=== PATIENT | female | born 1935 | race Caucasian/White ===

== ENCOUNTER 2019-07-11 07:48 | Inpatient (IN) | payer MEDICARE, BC ==
[~2019-07-11 07:48] MED LIST: Isosulfan Blue 5 ML SDV ONE
[2019-07-11] MEDS ORDERED: Glycopyrrolate 0.2 MG/ML 5 ML MDV ONE (08:22)
[2019-07-11] MEDS ORDERED: Ondansetron 4 MG/2 ML SDV ONE (08:22)
[2019-07-11] MEDS ORDERED: Dexamethasone 4 MG/ML SDV ONE (08:22)
[2019-07-11] MEDS ORDERED: Neostigmine Methylsulfate 1 MG/ML 5 ML Syringe ONE (08:22)
[2019-07-11] MEDS ORDERED: Propofol 200 MG/20 ML SDV ONE (08:22)
[2019-07-11] MEDS: Dextrose 5%-Lactated Ringers 1,000 ML IV SCH ×3 (08:22→14:13)
[2019-07-11] MEDS ORDERED: Rocuronium 50 MG/5 ML Vial ONE (08:22)
[2019-07-11] MEDS ORDERED: fentaNYL 250 MCG/5 ML SDV ONE ×2 (08:24→11:23)
[2019-07-11] MEDS ORDERED: Lidocaine 1% with EPINEPHrine 1:100,000 50 ML MDV ONE (08:47)
[2019-07-11] MEDS ORDERED: Bupivacaine 0.5% 50 ML MDV ONE (08:47)
[2019-07-11] MEDS ORDERED: Acetaminophen 500 MG Tab PO ONE (09:00)
[2019-07-11] MEDS ORDERED: ceFAZolin 2 GM in Sodium Chloride 0.9% 50 ML IV ONE (09:45)
[2019-07-11] MEDS: Mupirocin Oint 22 GM Tube TOP SCH ×2 (11:38→14:13)
[2019-07-11] MEDS ORDERED: Mupirocin Oint 22 GM Tube TOP ONE (12:00)
[2019-07-11] MEDS ORDERED: HYDROmorphone 0.5 MG/0.5 ML Syringe IVPUSH PRN (14:35)
[2019-07-11] MEDS ORDERED: HYDROmorphone 1 MG/ML Syringe IV PRN (14:35)
[2019-07-11] MEDS ORDERED: Ondansetron 4 MG/2 ML SDV IVPUSH PRN (14:35)
[2019-07-11] MEDS: Acetaminophen 325 MG Tab PO SCH ×2 (17:00→21:50)
[2019-07-11] MEDS: ceFAZolin 2 GM in Sodium Chloride 0.9% 50 ML IV SCH (17:01)
[2019-07-11] MEDS ORDERED: Dorzolamide 2% Ophth Soln 10 ML Bottle EYEBOTH SCH (21:00)
[2019-07-11] MEDS: Latanoprost 0.005% Ophth Soln 2.5 ML Bottle EYEBOTH SCH (21:49)
[2019-07-11] MEDS: AZOPT 1% EYEBOTH SCH (21:49)
[2019-07-12] MEDS: ceFAZolin 2 GM in Sodium Chloride 0.9% 50 ML IV SCH ×2 (00:58→08:21)
[2019-07-12] MEDS: Dextrose 5%-Lactated Ringers 1,000 ML IV SCH (02:46)
[2019-07-12] MEDS: Acetaminophen 325 MG Tab PO SCH ×4 (05:44→21:21)
[2019-07-12] MEDS: AZOPT 1% EYEBOTH SCH ×2 (08:11→21:22)
[2019-07-12] MEDS: Mupirocin Oint 22 GM Tube TOP SCH (08:13)
[2019-07-12] MEDS: Aspirin 81 MG Tab.EC PO SCH (08:14)
[2019-07-12] MEDS ORDERED: Hydrochlorothiazide 25 MG Tab PO SCH (09:00)
[2019-07-12] MEDS: Potassium Chloride 10 MEQ Cap.ER PO SCH (10:02)
[2019-07-12] MEDS: Simvastatin 20 MG Tab PO SCH (10:02)
[2019-07-12] MEDS: Hydrochlorothiazide 25 MG Tab PO SCH ×2 (10:03→21:21)
[2019-07-12] MEDS: Lisinopril 20 MG Tab PO SCH ×2 (10:03→21:22)
[2019-07-12] MEDS: Metoprolol Succinate 50 MG Tab.ER PO SCH (10:04)
--- NOTE | 2019-07-12 11:14 | PN ---
DATE OF SERVICE: 07/12/2019 SUBJECTIVE: Tori's pain is controlled. She has been up, ambulating. She does have a little bit of swelling on the right side of her neck, but COLLEEN drain fell out. She has no other concerns or questions. OBJECTIVE: GENERAL: Tori Merino is an 83-year-old female; alert, orientated; color flushed. VITAL SIGNS: TPR 96.7, 52, 18. Blood pressure 150/68. HEENT: Negative. NECK: Supple. HEART: Regular rate and rhythm. LUNGS: Clear. Dressing is dry and intact. EXTREMITIES: Without peripheral edema. ASSESSMENT: Left modified radical mastectomy with sentinel lymph node biopsy and excision of right submandibular gland with frozen section. Date of surgery, 07/11/2019. Surgeon, Michele Humphrey MD. PLAN: Regular diet. Saline lock IV. Home medications are restarted. Communication order to teach COLLEEN drain care. Home health care consult. Plan discharge in a.. Noreen Leon PA-C /[id number]
[2019-07-12] MEDS: Latanoprost 0.005% Ophth Soln 2.5 ML Bottle EYEBOTH SCH (21:22)
[2019-07-13] MEDS: Acetaminophen 325 MG Tab PO SCH ×4 (05:36→21:37)
[2019-07-13] MEDS: AZOPT 1% EYEBOTH SCH ×2 (09:42→21:38)
[2019-07-13] MEDS: Potassium Chloride 10 MEQ Cap.ER PO SCH (09:43)
[2019-07-13] MEDS: Docusate Sodium 100 MG Cap PO SCH ×2 (09:44→21:38)
[2019-07-13] MEDS: Magnesium Hydroxide 400 MG/5 ML Susp 30 ML Cup PO SCH ×2 (09:44→21:35)
[2019-07-13] MEDS: Mupirocin Oint 22 GM Tube TOP SCH (09:44)
[2019-07-13] MEDS: Hydrochlorothiazide 25 MG Tab PO SCH ×2 (09:45→21:36)
[2019-07-13] MEDS: Aspirin 81 MG Tab.EC PO SCH (09:45)
[2019-07-13] MEDS: Simvastatin 20 MG Tab PO SCH (09:46)
[2019-07-13] MEDS: Metoprolol Succinate 50 MG Tab.ER PO SCH (09:46)
[2019-07-13] MEDS: Lisinopril 20 MG Tab PO SCH ×2 (09:47→21:39)
[2019-07-13] MEDS: Latanoprost 0.005% Ophth Soln 2.5 ML Bottle EYEBOTH SCH (21:38)
[2019-07-14] MEDS: Acetaminophen 325 MG Tab PO SCH ×2 (06:03→10:10)
--- NOTE | 2019-07-14 08:16 | DISCH ---
ADMISSION DIAGNOSES: 1. Left breast cancer. 2. Mass on right side of neck. 3. Essential hypertension. 4. Hyperlipidemia. 5. Hypokalemia. 6. History of right breast cancer. 7. Prediabetes. 8. Depression. 9. Glaucoma. 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 DISCHARGE DIAGNOSES: 1. Left modified radical mastectomy with sentinel lymph node biopsy. 2. Excision of right submandibular gland with subnodular lymph node dissection. POSTOPERATIVE DIAGNOSES: 1. Left breast cancer, sentinel lymph node negative on frozen section. 2. 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 DATE OF SURGERY: 07/11/2019. SURGEON: Michele Humphrey MD. HISTORY: Tori Weber is 83-year-old female with previous history of right breast cancer. She presented to the hospital with left breast cancer and a right submandibular mass. After preoperative evaluation and discussion of possible risks and possible complications, she wished to proceed with surgical procedure. HOSPITAL COURSE: Tori had no operative complications. On postoperative day #1, she started with a clear liquid diet and advanced to regular. Her pain was controlled. On postoperative day 2, she had not had a bowel movement. Oral intake was adequate. Urine output adequate. COLLEEN drain care was a concern. She lives at home. Home health care will be set up. She was given bowel stimulation, and on 07/14/2019, she was able to be discharged to home.
[2019-07-14] MEDS: AZOPT 1% EYEBOTH SCH (08:20)
[2019-07-14] MEDS: Metoprolol Succinate 50 MG Tab.ER PO SCH (08:21)
[2019-07-14] MEDS: Hydrochlorothiazide 25 MG Tab PO SCH (08:22)
[2019-07-14] MEDS: Lisinopril 20 MG Tab PO SCH (08:22)
[2019-07-14] MEDS: Potassium Chloride 10 MEQ Cap.ER PO SCH (08:23)
[2019-07-14] MEDS: Mupirocin Oint 22 GM Tube TOP SCH (08:23)
[2019-07-14] MEDS: Aspirin 81 MG Tab.EC PO SCH (08:23)
[2019-07-14] MEDS: Docusate Sodium 100 MG Cap PO SCH (08:26)
[2019-07-14] MEDS: Magnesium Hydroxide 400 MG/5 ML Susp 30 ML Cup PO SCH (08:26)
[2019-07-14] MEDS: Simvastatin 20 MG Tab PO SCH (08:27)
--- NOTE | 2019-07-14 13:01 | PN ---
DATE OF SERVICE: 07/13/2019 SUBJECTIVE: Tori is postoperative day #2. She reports that she still feels weak. Pain is controlled with Tylenol. She has been afebrile. Oral intake was 875. Urine output 1250. She states she is not eating very much, she ate 50% for breakfast, 100% for lunch and dinner. COLLEEN drains are draining 60, 35, 25 of a light pink drainage. She is not passing any flatus and concerned about not having a bowel movement. REVIEW OF SYSTEMS: Remainder of review of systems negative for any pertinent positives and negatives. OBJECTIVE: GENERAL: Tori Merino is an 83-year-old female. VITAL SIGNS: TPR is 96.9, 56, 16, blood pressure 152/74. HEENT: Negative. Incision on the right side of her neck looks good. There is less facial swelling. Muscles look good. When she smiles, it is symmetrical. HEART: Regular rate and rhythm. BREASTS: Dressing over mastectomy site is dry and intact. COLLEEN drains as above. ABDOMEN: Abdomen is soft, nontender. EXTREMITIES: Without peripheral edema. ASSESSMENT: Left modified radical mastectomy with sentinel lymph node biopsy and excision of right submandibular gland with frozen section. Date of surgery, 07/11/2019. Surgeon, Michele Humphrey MD. PLAN: 1. Dressing off, december shower. 2. Colace 100 mg p.o. b.i.d. 3. Milk of magnesia 30 mL b.i.d. until BM. We will evaluate p.r.n. or in a.m. Noreen Leon PA-C /[id number]
--- NOTE | 2019-07-14 13:04 | DISCH ---
ADDENDUM: Tori Merino was able to be discharged on 07/14/2019 with no complications. She did have physical therapy evaluation and instructions were given. PHYSICAL EXAMINATION: GENERAL: Tori Merino is an 83-year-old female. VITAL SIGNS: Height is 5 feet 6 inches, weight is 159 pounds. TPR is 96, 56, 16. Blood pressure 181/68. HEENT: She has some swelling in the right lower jaw line, otherwise negative. Face is symmetrical when she smiles, but there is a little drooping noted when talking. NECK: Supple. Right neck Steri-Strips are intact. HEART: Regular rate and rhythm. LUNGS: Clear. SKIN: Left mastectomy incision eduardo intact. COLLEEN drains are intact and output of the 2 COLLEEN drains are 55 and 20, and they are light pink drainage. ABDOMEN: Soft and nontender. Last bowel movement was midnight. EXTREMITIES: Without peripheral edema. DISPOSITION: Discharged to home. CONDITION: Stable and improving. FOLLOWUP APPOINTMENT: Followup appointment with Michele Humphrey MD, at [facility] on 07/26/2019 at 10 a.m. DISCHARGE MEDICATIONS: She is to resume home medications, takin. Tylenol 650 mg every 6 hours p.r.n. pain. 2. Aspirin 81 mg p.o. daily. 3. Brinzolamide/Azopt 1% ophthalmic solution 2 drops in each eye twice daily. 4. Fluorouracil 1 applicator topical twice daily. 5. Latanoprost 2 drops both eyes at bedtime. 6. Zestoretic 20/25 mg 1 tablet twice daily. 7. Metoprolol succinate 200 mg oral daily. 8. Potassium chloride 10 mEq daily. 9. Simvastatin 10 mg oral daily. DIET: Usual diet as tolerated. Drink 8 to 10 glasses of water a day. ACTIVITY: After discharge, no lifting greater than 10 pounds for 6 weeks. Driving: Do not drive for 2 weeks. Shower/bathing: May shower. Keep sites clean and dry. Keep incision covered with an Karan wrap or use some gauze to cover the eduardo. DISCHARGE INSTRUCTIONS: Notify provider if any fever, increased pain, nausea, or vomiting. SPECIAL WOUND INSTRUCTIONS: Strip, empty, measure, and record COLLEEN drains 2 times a day. Record each drain separately and bring record of drainage to clinic appointment. SPECIAL INSTRUCTION: Use incentive spirometer 10 times every hour while awake.
--- NOTE | 2019-07-17 10:55 | OR ---
DATE OF PROCEDURE: 07/11/2019 SURGEON: Michele Humphrey MD PREOPERATIVE DIAGNOSES: 1. Carcinoma of the left breast. 2. Right submandibular gland mass. POSTOPERATIVE DIAGNOSES: 1. Carcinoma of the left breast with sentinel lymph nodes negative for metastatic disease on frozen section. 2. 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 OPERATIVE PROCEDURE: 1. Left modified radical mastectomy with sentinel lymph node biopsy ([id number]). 2. Excision of right submandibular gland with submandibular triangle lymph node dissection ([id number], [id number]). ANESTHESIA: General. FARM OPERATOR: Noreen Leon PA-C. 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 The patient is many years status post previous right mastectomy for breast cancer with no known recurrence. Additionally, the patient has an enlarging mass on the right submandibular gland. The plan is to proceed with right modified radical mastectomy with sentinel lymph node biopsy. If the sentinel nodes are positive for metastatic disease, some additional lymph node dissection will be undertaken and again we will then proceed with right submandibular gland dissection with, at minimum, a submandibular triangle lymph node dissection. Potential risks of the procedure including bleeding, infection, local or distant tumor recurrence, possible nerve injuries in the submandibular gland area, as well as remote possibility of cardiopulmonary, septic, or hemorrhagic complications leading to . The patient is aware that additional treatment might be needed either with regard to the breast carcinoma or the submandibular gland mass in terms of chemo and radiation treatment, depending on the final pathologic staging, and wishes to proceed. DETAILS OF PROCEDURE: The patient was taken to the operating room and general endotracheal anesthesia was induced. Initially, 4 mL of Isosulfan blue dye was placed in the subdermal areas around the areola of the left breast and the left breast, axilla, and surrounding areas were then prepped and draped. A transversely oriented elliptical incision was made, which widely encompassed the nipple-areolar complex, as well as the tract of the biopsy site recently undertaken. This was carried down through the skin and subcutaneous tissue. Subcutaneous flaps were then raised superiorly, medially, laterally, and inferiorly to the usual extent. As one approached the upper lateral aspect, the diagonal branches were encountered and traced downward. Several lymph nodes were then removed, which contained some of the dye in the lower third of the axilla, and these were sent for frozen section after being removed by means of electrocautery. Frozen section on these was negative for any obvious metastatic disease. The breast was then retracted off the chest wall in continuity with pectoralis major fascia and delivered from the field. The area was inspected. No bleeding or other problems were noted. Two Keo-Francisco drains were then placed inferiorly from the main incision, and the incision closed with some interrupted 3-0 Vicryl stitches deep and then eduardo for the skin. The drain was affixed with some 3-0 Vicryl stitch as well. Dressing was then applied. At this point, a complete new set of instruments, as well as gowns and gloves were obtained, and the right side of the face and neck was then prepped and draped. A curvilinear incision from the lateral aspect of the hyoid to the anterior border of the sternocleidomastoid muscle, more or less 3 fingerbreadths below the mandible was then undertaken. This was carried down through the skin and subcutaneous tissue and platysma layers. Subplatysmal flaps were then raised superiorly and inferiorly. The facial artery and vein superior to the submandibular gland were then identified and this each case divided between clamps and suture-ligated. The upper aspect of the divided vessels was retracted upward in order to protect the marginal mandibular branch of the facial nerve. Initially, then, the facial artery lymph nodes were identified, and the submandibular gland was noted to be not affixed to the periosteum or other structures superiorly. The plane of dissection was then developed along the ramus of mandible from the midline to just proximal to the angle of the jaw. In so doing, the fibrofatty and lymphatic tissues were dissected inferiorly down to the level where the anterior belly of the digastric muscle was identified. The nerve supplying the mylohyoid muscle was then identified and divided. The fibrofatty and lymphatic tissue above the anterior belly of the digastric muscle and then carried behind that muscle, exposing the mylohyoid muscle. The dissection continued on the lateral aspect of the mylohyoid muscle laterally, and the dissection was then continued down the deep structures of mylohyoid muscle, retracting it medially and dissecting some of the fibrofatty tissue in that area as well. This exposed the hypoglossal nerve, which was preserved. The ductus submandibular gland was then identified and dissection along the duct continued up to the point where there wasn't any remainder of tissue around it, where it was then doubly clamped, divided, and suture-ligated with 4-0 Vicryl stitch. The genu of the mandibular nerve was divided superior to the gland and included with the specimen as well. The gland was then retracted posteriorly and inferiorly, exposing some nodes in that area, with the dissection then continued down to the posterior belly of the digastric muscle. Finally, the facial artery and veins as the crossed the posterior belly of the diagastric muscle were then doubly clamped, divided, and suture-ligated with Vicryl stitch as well and the specimen delivered from the field. Frozen section was obtained. There was a well-defined white nodule within the substance of the submandibular gland. There was no gross lymphadenopathy within the resected specimen. 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 The area was irrigated with Zyvox-containing saline solution. A 10-[place] round Keo-Francisco drain was then placed through the stab wound just inferior to the incision and sutured there with 3-0 Vicryl stitch. The incision was then closed with a 3-0 Vicryl stitch at the platysmal layer, subdermal 4-0 Vicryl stitch, and then a 4-0 Vicryl subcuticular stitch and Steri-Strips applied. Dressing was placed. The patient was taken to the recovery room in satisfactory condition. Physician safety admin assistant, Noreen Leon, played an essential role in assisting in this case, helping to position the patient, retract structures as needed, as well as suturing and cutting sutures when indicated, as well as applying eduardo at the mastectomy site. Her presence improved patient safety and decreased operative time. Michele Humphrey MD Job #: [id number]
== END 2019-07-14 10:45 | disposition home health service (06) | DRG 581 ==
LOC: JP.SDS 07:48 → JP.SDSSCHI 07:48 → EDSTATUS 08:30 → JP.MS 13:30
PROVIDERS: ADMIT Surgery; ATTEND Surgery
PROC: 0HTU0ZZ Resection of Left Breast, Open Approach (ICD-10-PCS; principal; 2019-07-11)
PROC: 07B60ZX Excision of Left Axillary Lymphatic, Open Approach, Diagnostic (ICD-10-PCS; 2019-07-11)
PROC: 0CBG0ZZ Excision of Right Submaxillary Gland, Open Approach (ICD-10-PCS; 2019-07-11)
DX: C50.912 Malignant neoplasm of unspecified site of left female breast (principal); K11.8 Other diseases of salivary glands; I10 Essential (primary) hypertension; E78.5 Hyperlipidemia, unspecified; E87.6 Hypokalemia; R73.03 Prediabetes; F32.9 Major depressive disorder, single episode, unspecified; H61.23 Impacted cerumen, bilateral; H40.9 Unspecified glaucoma; R22.1 Localized swelling, mass and lump, neck; Z79.82 Long term (current) use of aspirin; Z79.899 Other long term (current) drug therapy
CPT/HCPCS: 97161-GP; A9270-GY; J0690; J1100; J2020; J2405; J2704; J2710; J3010; J3490; J7042; J7050; Q9968

== ENCOUNTER 2020-03-07 08:33 | Day surgery (SDC) | payer MEDICARE, BC ==
[~2020-03-07 08:33] MED LIST changes: -Isosulfan Blue 5 ML SDV ONE; +Sodium Chloride 0.9% 10 ML Syringe FLUSH SCH
--- NOTE | 2020-03-07 15:37 | OR ---
DATE OF PROCEDURE: 03/07/2020 SURGEON: Dara Cifuentes MD POSTOPERATIVE CARE: Postoperative care will be provided mainly at the [address] [place] [address] [facility] in conjunction with [facility]. PREOPERATIVE DIAGNOSIS: Cataract, left eye. POSTOPERATIVE DIAGNOSIS: Cataract, left eye. PROCEDURE: Phacoemulsification with intraocular lens placement, left eye. ANESTHESIA: Topical and intracameral. ESTIMATED BLOOD LOSS: Minimal. COMPLICATIONS: None. PATHOLOGY SPECIMENS: None. SURGICAL FINDINGS: None. INDICATION FOR PROCEDURE: The patient is an 84-year-old female with history of a visually significant cataract in the left eye, which interfered with activities of daily living. This consisted of a nuclear sclerosis cataract. Following careful discussion of the risks, benefits and alternatives to cataract extraction with intraocular lens placement including blindness and , the patient elected to proceed, and informed, written consent was obtained prior to the procedure. DESCRIPTION OF THE PROCEDURE: The patient was previously identified, and a lila placed above the left eye. All sources, including the patient, indicated that the left eye was the correct eye. The patient was subsequently taken to the operating room where standard monitors were applied. The patient was then prepped and draped in the usual sterile fashion for ophthalmic surgery. Attention was first directed at the 12 o'clock position where a paracentesis port was fashioned. Shugar solution followed by Viscoat was instilled into the eye. Attention was then directed to the 8:30 position where a triplanar incision was made in a near-clear manner using a keratome. A continuous capsulorrhexis was then made using a combination of the cystotome and Utrata forceps. Hydrodissection was achieved using a balanced salt solution, and the lens rotated nicely. Phacoemulsification was then done using a modified [id number] technique without complication. Phaco time was 4.20 CDE. The remaining cortex was removed using the irrigation/aspiration handpiece. Provisc was then instilled into the eye. A Technis lens, model CG6078, at 19.0 diopters was then placed in the capsular bag using an [place] injector. The remaining viscoelastic was removed using the irrigation/aspiration forceps. All wounds were then checked and found to be watertight. The lid speculum and drapes were removed. Maxitrol ointment was placed in the patient's left eye, and the eye was shielded. The patient tolerated the procedure well. The patient was instructed to follow up tomorrow. All needle and sponge counts were correct at the end of the procedure. Dara Cifuentes MD /[id number]
== END 2020-03-07 09:59 | disposition home or self-care (01) ==
LOC: JP.SDS 08:33
PROVIDERS: ATTEND Ophthalmology
DX: H25.12 Age-related nuclear cataract, left eye (principal); I10 Essential (primary) hypertension
CPT/HCPCS: 66984; V2632

== ENCOUNTER 2020-03-28 06:54 | Day surgery (SDC) | payer MEDICARE, BC ==
[2020-03-28] MEDS ORDERED: Sodium Chloride 0.9% 10 ML Syringe FLUSH ONE (07:30)
--- NOTE | 2020-03-28 13:27 | OR ---
DATE OF PROCEDURE: 03/28/2020 SURGEON: Dara Cifuentes MD POSTOPERATIVE CARE: Postoperative care will be provided mainly at the [address] [place] [address] [facility] in conjunction with [facility]. PREOPERATIVE DIAGNOSIS: Cataract, right eye. POSTOPERATIVE DIAGNOSIS: Cataract, right eye. PROCEDURE: Phacoemulsification with intraocular lens placement, right eye. ANESTHESIA: Topical and intracameral. ESTIMATED BLOOD LOSS: Minimal. COMPLICATIONS: None. PATHOLOGY SPECIMENS: None. SURGICAL FINDINGS: None. INDICATION FOR PROCEDURE: The patient is an 84-year-old female with history of a visually significant cataract in the right eye, which interfered with activities of daily living. This consisted of a nuclear sclerosis cataract. Following careful discussion of the risks, benefits and alternatives to cataract extraction with intraocular lens placement including blindness and , the patient elected to proceed, and informed, written consent was obtained prior to the procedure. DESCRIPTION OF THE PROCEDURE: The patient was previously identified, and a lila placed above the right eye. All sources, including the patient, indicated that the right eye was the correct eye. The patient was subsequently taken to the operating room where standard monitors were applied. The patient was then prepped and draped in the usual sterile fashion for ophthalmic surgery. Attention was first directed at the 12 o'clock position where a paracentesis port was fashioned. Shugar solution followed by Viscoat was instilled into the eye. Attention was then directed to the 8:30 position where a triplanar incision was made in a near-clear manner using a keratome. A continuous capsulorrhexis was then made using a combination of the cystotome and Utrata forceps. Hydrodissection was achieved using a balanced salt solution, and the lens rotated nicely. Phacoemulsification was then done using a modified [id number] technique without complication. Phaco time was 5.30 CDE. The remaining cortex was removed using the irrigation/aspiration handpiece. Provisc was then instilled into the eye. A Technis lens, model PCB00, at 18.0 diopters was then placed in the capsular bag using an [place] injector. The remaining viscoelastic was removed using the irrigation/aspiration forceps. All wounds were then checked and found to be watertight. The lid speculum and drapes were removed. Maxitrol ointment was placed in the patient's right eye, and the eye was shielded. The patient tolerated the procedure well. The patient was instructed to follow up tomorrow. All needle and sponge counts were correct at the end of the procedure. Dara Cifuentes MD /[id number]
== END 2020-03-28 08:45 | disposition home or self-care (01) ==
LOC: JP.SDS 06:54
PROVIDERS: ATTEND Ophthalmology
DX: H25.11 Age-related nuclear cataract, right eye (principal); I10 Essential (primary) hypertension
CPT/HCPCS: V2632